=== PATIENT | male | born 1945 | race Caucasian/White ===

== ENCOUNTER → 2024-03-02 06:27 | Day surgery (SDC) | payer MEDICARE, OTHER, SELFPAY | LOC: GI 06:27 | PROVIDERS: ATTENDING PHYSICIAN Internal Medicine Gastroenterology | DX: Z12.11 Encounter for screening for malignant neoplasm of colon (principal); K64.8 Other hemorrhoids; D12.3 Benign neoplasm of transverse colon; Z86.010 Personal history of colon polyps | CPT/HCPCS: 45385; 88305 ==

== ENCOUNTER → 2024-06-09 07:41 | Outpatient (REF) | payer MEDICARE, OTHER, SELFPAY ==
[2024-06-09 09:04] LABS: % Basophils 0.5 % (0-2); % Eosinophils 4.6 % (0-6); % Immature Granulocytes 0.3 % (0-0.5); % Lymphocytes 36.1 % (20.5-51.1); % Monocytes 6.9 % (1.7-9.3); % Neutrophils 51.6 % (42.2-75.2); Absolute Eosinophils 0.2 10^3/uL (0-0.7); Absolute Lymphocytes 1.4 10^3/uL (1.2-3.4); Absolute Monocytes 0.3 10^3/uL (0.1-0.6); Hematocrit 41.6 % (39.0-52.0); Hemoglobin 14.2 g/dL (13.0-18.0); Mean Corp Hgb Conc. 34.1 g/dL (33.0-37.0); Mean Corpuscular Hgb 31.4 pg (27.0-31.0); Mean Platelet Volume 9.5 fL (7.4-10.4); Nucleated Red Blood Cells % 0 % (-); Platelet Count 168 10^3/uL (130-400); Red Blood Cell Count 4.52 10^6/uL (4.70-6.10); Red Cell Dist. Width 12.5 % (11.5-14.5); White Blood Cell Count 3.9 10^3/uL (4.8-10.8)
[2024-06-09 10:01] LABS: TSH 2.21 uIU/ml (0.47-4.68)
[2024-06-09 10:46] LABS: ALT (SGPT) 15 U/L (0-50); AST (SGOT) 25 U/L (17-59); Albumin 4.2 g/dl (3.5-5.0); Alkaline Phosphatase 47 U/L (38-126); Blood Urea Nitrogen 24 mg/dl (9-20); Calcium 8.8 mg/dl (8.4-10.2); Carbon Dioxide 25 mmol/L (22-30); Chloride 105 mmol/L (98-107); Glucose 91 mg/dl (70-99); HDL Cholesterol 66 mg/dl; LDL Cholesterol, Calculated 91 mg/dl; Potassium 4.3 mmol/L (3.5-5.1); Sodium 140 mmol/L (135-145); Total Bilirubin 0.9 mg/dl (0.2-1.3); Total Cholesterol 165 mg/dl (50-199); Total Protein 6.4 g/dl (6.3-8.2); Triglyceride 44 mg/dl (10-149); Very Low Density Lipoprotein 8 mg/dl (0-30); eGFR > 60.00
[2024-06-11 05:14] LABS: PSA Total 1.1 ng/mL (0.0-4.0)
== END ==
LOC: REG 07:41
PROVIDERS: ATTENDING PHYSICIAN Internal Medicine
DX: E78.5 Hyperlipidemia, unspecified (principal); R53.82 Chronic fatigue, unspecified; Z00.00 Encounter for general adult medical examination without abnormal findings; N40.0 Benign prostatic hyperplasia without lower urinary tract symptoms
CPT/HCPCS: 36415; 80053; 80061; 84153; 84154; 84443; 85025

== ENCOUNTER → 2024-07-22 14:10 | Outpatient (REF) | payer MEDICARE, OTHER, SELFPAY ==
[2024-07-22 15:23] LABS: C-Reactive Protein < 5.00 mg/L (0.0-10.00)
[2024-07-22 15:26] LABS: % Basophils 0.4 % (0-2); % Eosinophils 2.9 % (0-6); % Immature Granulocytes 0.2 % (0-0.5); % Lymphocytes 30.8 % (20.5-51.1); % Neutrophils 57.7 % (42.2-75.2); Absolute Eosinophils 0.1 10^3/uL (0-0.7); Absolute Lymphocytes 1.5 10^3/uL (1.2-3.4); Absolute Monocytes 0.4 10^3/uL (0.1-0.6); Absolute Neutrophils 2.8 10^3/uL (1.4-6.5); Hemoglobin 14.5 g/dL (13.0-18.0); Mean Corp Hgb Conc. 34.5 g/dL (33.0-37.0); Mean Corpuscular Hgb 31.5 pg (27.0-31.0); Mean Corpuscular Volume 91.1 fL (80.0-94.0); Mean Platelet Volume 9.7 fL (7.4-10.4); Nucleated Red Blood Cells % 0 % (-); Platelet Count 202 10^3/uL (130-400); Red Blood Cell Count 4.61 10^6/uL (4.70-6.10); Red Cell Dist. Width 12.2 % (11.5-14.5); White Blood Cell Count 4.8 10^3/uL (4.8-10.8)
[2024-07-22 16:49] LABS: Erythrocyte Sed Rate 9 mm/hour (0-20)
== END ==
LOC: REG 14:10
PROVIDERS: ATTENDING PHYSICIAN Physician Assistant Surgical; FAMILY PHYSICIAN Internal Medicine
DX: S86.912A Strain of unspecified muscle(s) and tendon(s) at lower leg level, left leg, initial encounter (principal); Z96.652 Presence of left artificial knee joint; M25.562 Pain in left knee
CPT/HCPCS: 36415; 85025; 85652; 86140

== ENCOUNTER → 2024-08-22 16:56 | Outpatient (REF) | payer MEDICARE, OTHER, SELFPAY | LOC: RAD 16:56 | PROVIDERS: ATTENDING PHYSICIAN Nurse Practitioner | DX: J06.9 Acute upper respiratory infection, unspecified (principal) | CPT/HCPCS: 71046 ==

== ENCOUNTER 2024-09-20 11:12 | Emergency (ER) | payer MEDICARE, OTHER, SELFPAY ==
[2024-09-20 11:25] VITALS: BP 139/94
[2024-09-20 12:02] LABS: % Basophils 0.6 % (0-2); % Eosinophils 4.8 % (0-6); % Immature Granulocytes 0.2 % (0-0.5); % Lymphocytes 17.8 % (20.5-51.1); % Monocytes 9.3 % (1.7-9.3); % Neutrophils 67.3 % (42.2-75.2); Absolute Eosinophils 0.2 10^3/uL (0-0.7); Absolute Lymphocytes 0.9 10^3/uL (1.2-3.4); Absolute Monocytes 0.5 10^3/uL (0.1-0.6); Absolute Neutrophils 3.2 10^3/uL (1.4-6.5); Hematocrit 45.2 % (39.0-52.0); Mean Corp Hgb Conc. 33.2 g/dL (33.0-37.0); Mean Corpuscular Hgb 30.9 pg (27.0-31.0); Mean Corpuscular Volume 93.2 fL (80.0-94.0); Mean Platelet Volume 9.4 fL (7.4-10.4); Nucleated Red Blood Cells % 0 % (-); Platelet Count 158 10^3/uL (130-400); Red Blood Cell Count 4.85 10^6/uL (4.70-6.10); Red Cell Dist. Width 12.4 % (11.5-14.5); White Blood Cell Count 4.8 10^3/uL (4.8-10.8)
[2024-09-20 12:07] LABS: ALT (SGPT) 18 U/L (0-50); AST (SGOT) 27 U/L (17-59); Albumin 4.6 g/dl (3.5-5.0); Alkaline Phosphatase 40 U/L (38-126); Blood Urea Nitrogen 20 mg/dl (9-20); Calcium 9.1 mg/dl (8.4-10.2); Carbon Dioxide 27 mmol/L (22-30); Chloride 105 mmol/L (98-107); Glucose 94 mg/dl (70-99); Potassium 4.9 mmol/L (3.5-5.1); Sodium 139 mmol/L (135-145); Total Protein 7.2 g/dl (6.3-8.2); eGFR > 60.00
[2024-09-20 12:19] LABS: Troponin I < 0.012 ng/ml
[2024-09-20 13:34] VITALS: BP 157/86
[2024-09-20 13:40] VITALS: BP 157/86
[2024-09-20 14:12] LABS: COVID-19 Antigen Negative (Negative)
--- NOTE | 2024-09-20 14:40 | ED.GENMED ---
History of Present Illness
General
Chief Complaint: Cardiac Symptoms
Source: patient
Exam Limitations: none
Time Seen by Provider: 09/20/24 13:24
History of Present Illness
History of Present Illness:
78-year-old male presented from the primary care office. Presented there for ongoing cough. Noted to have some shortness of breath in the office. They were concerned of possible EKG changes. Patient does intermittently get a very localized left
lateral chest pain. He has been getting this for months. It is nonpleuritic. Is not exertional. He currently does not have this.
Past History
Past History
ED Past Medical History: Hypothyroidism
ED Past Surgical History: Orthopedic
Social History
Tobacco: Non-smoker
Alcohol: None
Drug: None
Personal:
Living: with family
Review of Systems
Review of Systems
All Other Systems: Not applicable
Constitutional: Denies fever
Respiratory: Reports cough; Denies hemoptysis
Cardiac: Denies syncope
ABD/GI: Reports no symptoms
Phy Exam
Physical Exam
Physical Exam:
GENERAL: Alert and oriented in no apparent distress
EYE: Orbits normal.
NECK: Supple
CARDIAC: Regular rate and rhythm without any obvious murmurs.
LUNGS: Clear breath sounds,normal
ABDOMEN: Soft, without focal tenderness or distention
NEUROLOGICAL: Alert and oriented , grossly non-focal
SKIN: Warm and dry, no rash or lesion, no discoloration, skin intact.
MUSCULOSKELETAL: No edema,no deformity.Good color
PSYCH: Normal and appropriate interaction.
Course
Orders/Labs/Results
Orders:
Orders
09/20/24 11:13
ECG [Electrocardiogram (*1)] Urgent
Reason for Study: Shortness of Breath
Other Reason for Exam: ECG changes since January
09/20/24 11:14
EKG- Treatment ONCE
09/20/24 11:38
Complete Blood Count/With Diff Urgent
Comprehensive Metabolic Panel Urgent
Troponin I Urgent
09/20/24 13:44
COVID-19 Antigen Urgent
Source: Nasal Swab
Influenza A+B Rapid Molecular Urgent
[facility] Source: Nasal Swab
Specimen Description:
09/20/24 14:01
Electrocardiogram (*1) Stat
Reason for Study: Other
Other Reason for Exam: chest pain
CT Chest Pe Study Urgent
Comment:
Reason For Exam: Chest pain short of breath. Known aneurysm
EKG- Treatment ONCE
09/20/24 14:30
Troponin I Urgent
09/20/24 15:54
Doxycycline [Vibramycin] 100 mg .ROUTE .STK-MED ONE
09/20/24 15:55
Doxycycline [Vibramycin] 100 mg PO NOW STA
Abnormal Lab Results
09/20/24
11:38
Absolute Lymphs (auto) 0.9 L 10^3/uL
(1.2-3.4)
Lymphocytes % 17.8 L %
(20.5-51.1)
09/20/24 11:38
09/20/24 11:38
Vital Signs
Initial and Last Documented VS:
Initial Vital Signs
Temp Pulse Resp BP Pulse Ox
97.4 F 78 18 139/94 97
09/20/24 11:25 09/20/24 11:25 09/20/24 11:25 09/20/24 11:25 09/20/24 11:25
Last Documented Vital Signs
Temp Pulse Resp BP Pulse Ox
97.4 F 64 17 157/86 98
09/20/24 11:25 09/20/24 13:45 09/20/24 13:45 09/20/24 13:40 09/20/24 13:40
MDM/Problems Addressed
Differential Diagnosis Includes:
Patient with ongoing dry cough. Mild localized atypical chest pain. EKG shows a right bundle branch block with typical T wave changes. Very low suspicion for cardiac. Troponin is negative. Will repeat troponin for completeness. CT scan pending
to evaluate for PE and pneumonia. Does have a known aortic aneurysm. Doubt this is the issue but this will be picked up on CT.
*Pulse Oximetry
Patient hypoxic: no
*EKG
Interpreted by ED Provider?: Yes
Interpretation: abnormal
Comparison EKG: no changes
Heart Rate: 76
Rate: normal
Rhythm: sinus
Alta: normal axis
Interval: normal interval
QRS Pattern: right bundle branch block
Ischemia: non-specific ST changes
*Critical Care Note
Total Time (30-74mins, 75-104mins- exclusive of procedures): Not Applicable
Update Note
Update Note:
Patient is remained medically stable and nontoxic. Chest pain has been going on for months localized not exertional. Very low suspicion for cardiac. However, for completeness we will follow-up with cardiology. He does have some atelectasis at
the base of both lungs. With cough and mild shortness of breath will cover with doxycycline. No pulmonary emboli. Aorta is stable. Patient is aware of lung nodules. Also aware of thyroid nodules to follow-up.
ED Attending Note
-
Portions of this chart may have been created with voice recognition software.� Occasional wrong word or��sound alike� substitutions may have occurred due to the inherent limitations of voice recognition software.
Discharge Plan
Departure
Patient Disposition: Home (Routine Discharge)
Date of Disposition: 09/20/24
Time of Disposition: 15:41
Patient with high blood pressure during this ER visit?: Yes
Discharge Problem:
Cough/bilateral atelectasis, Atypical chest pain, Pulmonary nodules, Elevated right hemidiaphragm, Small thyroid nodules
Instructions: Pulmonary nodule, Shortness of breath in adults - ED discharge instructions, Chest Pain CBC Follow Up, BLOOD PRESSURE
Prescriptions:
New
doxycycline hyclate 100 mg capsule
100 mg PO BID 10 Days Qty: 20 0RF
No Action
levothyroxine 50 MCG tablet
50 mcg PO DAILY
montelukast 10 MG tablet
10 mg PO DAILY
albuterol sulfate 1 PUFF HFA aerosol inhaler
2 puff inhalation PRN PRN (Reason: SHORTNESS OF BREATH)
cannabidiol [Epidiolex] 1 UNIT solution
1 unit PO PRN PRN (Reason: Pain)
Patient Comments:
pt claims they dont take this, he takes CBD gummies
Referrals:
Will Bray MD [Family Provider] - Follow up in 2-3 days
Activity Restrictions/Additional Instructions:
Follow-up the pulmonary nodules with your primary physician. Will need a follow-up CT scan.
I did not make note that there are small thyroid nodules also. For completeness would recommend a thyroid ultrasound.
Interventions
Interventions:
*Risk Screen - Suicide Last Done: 09/20/24 11:25
*General Assessment Last Done: 09/20/24 11:25
*Neglect/Abuse Screening Last Done: 09/20/24 13:40
ED- Fall Risk Assessment Last Done: 09/20/24 13:40
*ED COVID-19 Vaccine History Last Done: 09/20/24 11:25
*Nursing Disposition Last Done: 09/20/24 16:09
ED- Pulmonary Assessment Last Done: 09/20/24 13:40
ED- Cardiac Assessment Last Done: 09/20/24 13:40
Discharge Date and Time
Discharge Date/Time: 09/20/24 16:10
Print Language: GREEK
[2024-09-20 15:18] LABS: Troponin I < 0.012 ng/ml
[2024-09-20] MEDS: VIBRAMYCIN 100 MG PO (15:56)
== END 2024-09-20 16:10 | disposition home or self-care (01) ==
LOC: EMR 11:12
PROVIDERS: Emergency Medicine; EMERGENCY PHYSICIAN Emergency Medicine; FAMILY PHYSICIAN Internal Medicine
DX: J98.11 Atelectasis (principal); R07.89 Other chest pain; R06.02 Shortness of breath; R91.8 Other nonspecific abnormal finding of lung field; Z11.52 Encounter for screening for COVID-19; E04.2 Nontoxic multinodular goiter; I45.10 Unspecified right bundle-branch block; I71.9 Aortic aneurysm of unspecified site, without rupture; E03.9 Hypothyroidism, unspecified
CPT/HCPCS: 99284; 71275; 80053; 84484; 85025; 87502; 87811; 93005; Q9967

== ENCOUNTER → 2024-10-12 08:14 | Outpatient (REF) | payer MEDICARE, OTHER, SELFPAY | LOC: RCS 08:14 | PROVIDERS: ATTENDING PHYSICIAN Internal Medicine; FAMILY PHYSICIAN Internal Medicine | DX: R07.9 Chest pain, unspecified (principal) | CPT/HCPCS: 93306 ==

== ENCOUNTER → 2024-10-18 11:04 | Outpatient (REF) | payer MEDICARE, OTHER, SELFPAY | LOC: HWRCS 11:04 | PROVIDERS: ATTENDING PHYSICIAN Internal Medicine; FAMILY PHYSICIAN Internal Medicine | DX: R07.9 Chest pain, unspecified (principal) | CPT/HCPCS: 78452; 93017; A9500 ==

== ENCOUNTER → 2024-12-19 11:39 | Outpatient (REF) | payer MEDICARE, OTHER, SELFPAY | LOC: HWRAD 11:39 | PROVIDERS: ATTENDING PHYSICIAN Internal Medicine | DX: R91.1 Solitary pulmonary nodule (principal) | CPT/HCPCS: 71250 ==

== ENCOUNTER → 2024-12-28 14:14 | Outpatient (REF) | payer MEDICARE, OTHER, SELFPAY | LOC: RAD 14:14 | PROVIDERS: ATTENDING PHYSICIAN Internal Medicine Rheumatology; FAMILY PHYSICIAN Internal Medicine | DX: M15.9 Polyosteoarthritis, unspecified (principal); M06.00 Rheumatoid arthritis without rheumatoid factor, unspecified site | CPT/HCPCS: 73110; 73130 ==

== ENCOUNTER → 2025-05-18 11:09 | Outpatient (REF) | payer MEDICARE, OTHER, SELFPAY ==
[2025-05-18 12:43] LABS: Hematocrit 44.7 % (39.0-52.0); Hemoglobin 15.1 g/dL (13.0-18.0); Mean Corp Hgb Conc. 33.8 g/dL (33.0-37.0); Mean Corpuscular Volume 93.1 fL (80.0-94.0); Nucleated Red Blood Cells % 0 % (-); Platelet Count 181 10^3/uL (130-400); Red Cell Dist. Width 12.2 % (11.5-14.5)
[2025-05-18 14:24] LABS: C-Reactive Protein < 5.00 mg/L (0.0-10.00)
== END ==
LOC: REG 11:09
PROVIDERS: ATTENDING PHYSICIAN Specialist; FAMILY PHYSICIAN Internal Medicine
DX: M25.461 Effusion, right knee (principal)
CPT/HCPCS: 36415; 85025; 85652; 86140

== ENCOUNTER → 2025-05-25 08:14 | Outpatient (REF) | payer MEDICARE, OTHER, SELFPAY | LOC: RAD 08:14 | PROVIDERS: ATTENDING PHYSICIAN Specialist; FAMILY PHYSICIAN Internal Medicine | DX: Z96.651 Presence of right artificial knee joint (principal); M25.551 Pain in right hip; M25.461 Effusion, right knee; Z96.652 Presence of left artificial knee joint; M16.0 Bilateral primary osteoarthritis of hip | CPT/HCPCS: 78315; A9503 ==

== ENCOUNTER → 2025-07-14 09:28 | Outpatient (REF) | payer MEDICARE, OTHER, SELFPAY ==
[2025-07-14 10:37] LABS: Hematocrit 43.4 % (39.0-52.0); Hemoglobin 14.8 g/dL (13.0-18.0); Mean Corp Hgb Conc. 34.1 g/dL (33.0-37.0); Mean Corpuscular Volume 92.5 fL (80.0-94.0); Nucleated Red Blood Cells % 0 % (-); Platelet Count 177 10^3/uL (130-400); Red Cell Dist. Width 12.5 % (11.5-14.5)
[2025-07-14 11:05] LABS: ALT (SGPT) 18 U/L (0-50); AST (SGOT) 25 U/L (17-59); Albumin 4.4 g/dl (3.5-5.0); Alkaline Phosphatase 43 U/L (38-126); Blood Urea Nitrogen 19 mg/dl (9-20); Calcium 9.2 mg/dl (8.4-10.2); Carbon Dioxide 29 mmol/L (22-30); Chloride 106 mmol/L (98-107); Glucose 87 mg/dl (70-99); HDL Cholesterol 77 mg/dl; Potassium 4.9 mmol/L (3.5-5.1); Sodium 139 mmol/L (135-145); Total Protein 7.0 g/dl (6.3-8.2); eGFR > 60.00
[2025-07-14 11:25] LABS: LDL Cholesterol, Calculated 88 mg/dl; Very Low Density Lipoprotein 9 mg/dl (0-30)
[2025-07-14 11:36] LABS: TSH 2.03 uIU/ml (0.47-4.68)
== END ==
LOC: HWRAD 09:28
PROVIDERS: ATTENDING PHYSICIAN Internal Medicine
DX: R91.1 Solitary pulmonary nodule (principal); N52.9 Male erectile dysfunction, unspecified; E78.5 Hyperlipidemia, unspecified; E03.9 Hypothyroidism, unspecified; N40.0 Benign prostatic hyperplasia without lower urinary tract symptoms
CPT/HCPCS: 36415; 71250; 80053; 80061; 84153; 84154; 84403; 84443; 85025